=== PATIENT | female | born 1960 | race Caucasian/White ===

== ENCOUNTER 2016-12-31 07:08 | Emergency (ER) | payer OTHER, MEDICARE ==
[~2016-12-31 07:08] MED LIST: ALBU8.5H2 INHALATION; AMLO10TA3 PO; FLUT12AE6 INH; GABA-502 PO; IBUP-1827 PO; LEVO750T39 PO; LOSA100T29 PO; NICO1PAT6 TOPICAL; OMEP20CA11 PO; PARO40TA3 PO; PRE10 PO; TIOT18CA3 INHALATION
[2016-12-31 07:14] VITALS: BP 182/102; PULSE 99; RESP 24; O2SAT 95
[2016-12-31] MEDS ORDERED: Ondansetron 2 mg/mL 2 mL Inj ONE (07:27)
[2016-12-31] MEDS ORDERED: HYDROmorphone 0.5 mg/0.5 mL iSecure Syringe ONE (07:28)
--- NOTE | 2016-12-31 07:33 | ED.REPORT ---
HPI-Abd Pain F 40 and Over Date of Service Dec 31, 2016 ED Provider: Rogelio Krause MD 56 year old female presents to the ER accompanied by her with left flank pain onset yesterday around 20:00. Pain is aching in character, described as a "bad bruise", and radiates slightly into her back. Associated symptoms include bloody urine, and nausea. Patient denies fever, chills, vomiting, and history of kidney stones. Nursing Notes Stated Complaint: LEFT PAIN PAIN Chief Complaint: Female Abdominal Pain Nursing Notes Reviewed: Yes Allergies: Coded Allergies: penicillin (Verified Adverse Reaction, Unknown, Nausea,Vomiting, 12/31/16) Scheduled Amlodipine (Amlodipine) 10 Mg Tablet 1 TABLET PO DAILY Fluticasone/Salmeterol (Advair Hfa 230-21 Mcg Inhaler) 12 Gm Hfa.aer.ad 2 PUFFS INH BID Gabapentin (Gabapentin) 300 Mg Capsule 1 TABLET PO HS Levofloxacin (Levofloxacin) 750 Mg Tablet 750 MG PO DAILY Losartan Potassium (Losartan Potassium) 100 Mg Tablet 1 TABLET PO DAILY Nicotine 21 mg/24 hr Patch (Nicotine 21 mg/24 hr Patch) 1 Patch Patch 1 PATCH TOPICAL DAILY Omeprazole (Omeprazole) 20 Mg Capsule.dr 1 TABLET PO BID Paroxetine (Paroxetine) 40 Mg Tablet 1 TABLET PO DAILY Prednisone (PredniSONE) 10 Mg Tablet 10-40 MG PO DAILY TAKE 4 TABS (40 MG) PO DAILY X 2 DAYS THEN, TAKE 3 TABS (30 MG) PO DAILY X 2 DAYS THEN, TAKE 2 TABS (20 MG) PO DAILY X 2 DAYS THEN, TAKE 1 TAB (10 MG) PO DAILY X 2 DAYS THEN STOP. Tamsulosin (Flomax) 0.4 Mg Capsule 0.4 MG PO DAILY Tiotropium [place] (Spiriva) 18 Mcg Cap.w.dev 1 INHALER INHALATION DAILY Scheduled PRN Albuterol HFA (Proair HFA) 8.5 Gm Hfa.aer.ad 2 PUFFS INHALATION QID PRN PRN For Wheezing Ibuprofen (Ibuprofen) 600 Mg Tablet 600-800 MG PO QID PRN PRN For Pain Ibuprofen (Ibuprofen) 600 Mg Tablet 600 MG PO QID PRN PRN For Pain oxyCODONE-Acetaminophen 5-325 mg (oxyCODONE-Acetaminophen 5-325 mg) 1 Each Tablet 1 TAB PO Q4H PRN PRN For Pain General Time Seen by : 07:32 Chief Complaint Flank pain left Hx Obtained From: Patient Arrived By: Walk-in Sudden in Onset?: No Onset Occurred: Yesterday Symptom Duration: Since onset Location: : Flank left Quality: Aching, Painful Severity: Current: Severe Severity: Maximum: Severe Associated with: Reports: Nausea, Denies: Chills, Fever, Vaginal bleeding, Vomiting Similar Sx Previous: No Past Medical History Past Medical History Reports: COPD Past Surgical History Reports: Cholecystectomy, Hysterectomy Smoking History Current Every Day Smoker Social History Alcohol Use: Denies alcohol use Drug Use: Denies drug use Other Social History: Good social support, Ambulatory Status Independent Review of Systems Constitutional: Denies: Chills, Fever Respiratory: Denies: Non-productive cough Cardiovascular: Denies: Chest pain GI: Reports: Nausea, Denies: Abdominal pain, Diarrhea, Vomiting Female: Reports: Flank pain, Hematuria, Denies: Dysuria, Vaginal bleeding - abnl Musculoskeletal: Denies: Back pain Complete sys rev & neg: except as marked. Physical Exam Vital Signs Vital Signs (First) Date Time Temp Pulse Resp B/P Pulse Ox O2 Delivery O2 Flow Rate FiO2 12/31/16 07:14 36.1 99 24 182/102 95 Room Air Initial VS: Reviewed Head / Eyes: Atraumatic, Normocephalic Neck: Supple, Non-tender, Full range of motion Extremities: Vascular intact, Neuro intact, No swelling, No tenderness Skin: Warm, Dry, No cyanosis Neurologic: Alert, Oriented, Nonfocal Psychiatric: Mood/affect normal, Behavior normal, Normal thought content General/Constitutional: Awake, Alert, Well developed, Well nourished Appearance / Presentation: Positive: In pain, Uncomfortable Respiratory / Chest: Breath sounds NL, Breath sounds = bilat, No respiratory distress, No rales, No rhonchi, No wheezing, No stridor Cardiovascular: Heart rate NL, Regular rhythm, Heart sounds NL, Peripheral circulation NL Abdomen: Soft, No guarding, No rebound, No distention Tenderness/Guarding/Rebound: Positive: Tender LLQ..., Tender LUQ... Back: Full range of motion, No midline vertebral tend Flank / Spine / Paraspinal: Positive: Flank tender L (Mild percussive tenderness) Interpretation & Diagnostics Lab Results Interpretation Result Diagram: 12/31/16 0725 12/31/16 0725 Test 12/31/16 07:25 12/31/16 08:55 White Blood Count 17.5th/mm3 (3.8-10.1) Red Blood Count 5.05mil/mm3 (3.90-5.20) Hemoglobin 13.4g/dL (12.0-15.6) Hematocrit 41.7% (35.0-46.0) Mean Corpuscular Volume 82.6fL (81-100) Mean Corpuscular Hemoglobin 26.5pg (27.0-35.0) Mean Corpuscular Hemoglobin Concent 32.1% (32.0-37.0) Red Cell Distribution Width 16.3% (12.3-15.4) Platelet Count 424bil/L (150-400) Neutrophils (%) (Auto) 76.9% (40-74) Lymphocytes (%) (Auto) 13.4% (14-46) Monocytes (%) (Auto) 8.8% (4-12) Eosinophils (%) (Auto) 0.6% (0-5) Basophils (%) (Auto) 0.1% (0-3) Sodium Level 142mEq/L (134-144) Potassium Level 4.1mEq/L (3.5-5.2) Chloride Level 105mEq/L (97-108) Carbon Dioxide Level 22mmol/L (18-29) Blood Urea Nitrogen 19mg/dL (6-24) Creatinine 0.90mg/dL (0.57-1.00) Estimat Glomerular Filtration Rate 92mL/min (>59) Glucose Level 127mg/dL (60-99) Calcium Level 9.0mg/dL (8.5-10.1) Total Bilirubin 0.3mg/dL (0.0-1.2) Aspartate Amino Transf (AST/SGOT) 25U/L (0-50) Alanine Aminotransferase (ALT/SGPT) 16U/L (0-32) Alkaline Phosphatase 122U/L (25-150) Total Protein 7.4g/dL (6.4-8.4) Albumin 4.5g/dL (3.4-5.0) Lipase 44U/L (13-60) Urine Color (YELLOW) Urine Appearance Cloudy (CLEAR,HAZY) Urine pH 6.0 (5.0-8.0) Urine Specific [place] 1.026 (1.003-1.035) Urine Protein 30mg/dL (NEG,TRACE) Urine Glucose (UA) Negativemg/dL (NEGATIVE) Urine Ketones Negativemg/dL (NEGATIVE) Urine Occult Blood Large (NEGATIVE) Urine Nitrite Negative (NEGATIVE) Urine Bilirubin Negative (NEGATIVE) Urine Urobilinogen Normalmg/dL (NORMAL) Urine Leukocyte Esterase Negative (NEGATIVE) Urine RBC Packed/hpf (0-2) Urine WBC 0-5/hpf (0-5) Urine Epithelial Cells Moderate/hpf (NONE-MOD) Urine Crystals None seen (NONE SEEN) Urine Bacteria None/hpf (NONE-FEW) Urine Hyaline Casts None/lpf (NONE) Urine Granular Casts None seen (NONE SEEN) Urine Waxy Casts None seen (NONE SEEN) Urine Red Blood Cell Casts None seen (NONE SEEN) Urine White Blood Cell Casts None seen (NONE SEEN) Urine Mucus None seen (None Seen) Urine Trichomonas None seen (NONE SEEN) Urine Yeast None (NONE SEEN) Urinalysis Comment None Urine Culture Reflexed Not indicated CT Abd / Pelvis Interpretation IMPRESSION: Mild to moderately obstructing 5 mm proximal left ureteral calculus No other urolithiasis. Dictated by: Javier Alatorre M.D. on 12/31/2016 at 8:26 Approved by: Javier Alatorre M.D. on 12/31/2016 at 8:31 Study type: Abdominal CT no contrast Interpretation / Wet Read by: Interpret - Radiologist Re-Eval/Medical Decision Med Decision/Clinical Course In summary, the patient is a generally healthy 56-year-old female who presents with colicky left-sided flank pain that is associated with hematuria. Here in the emergency department the patient is afebrile, borderline tachycardic and appears quite uncomfortable though otherwise has a benign abdominal examination. Patient was treated with the below medications and reported significant symptom improvement. IV fluids Dilaudid Zofran Upper studies were notable as below: Leukocytosis 17.5 Hct 41.7 Good renal function No electrolyte abnormalities. UA Large blood, otherwise normal. CT KUB IMPRESSION: Mild to moderately obstructing 5 mm proximal left ureteral calculus. No other urolithiasis. History, laboratory studies and imaging as above are all consistent with renal colic as a cause of the patient's pain. After blood medications patient reported significant symptomatic improvement and is able to tolerate PO. She remained afebrile without any significant evidence suggestive of urinary tract infection on urinalysis. Serial abdominal examinations remained benign without any findings suggestive of an acute surgical intra-abdominal process. Patient requested to be discharged home. She has been provided with urine strainer and referral to urology. Prescriptions for Flomax, oxycodone and ibuprofen were provided. At this time I feel that she is appropriate for outpatient management. She is advised to return right away for any worsening pain, fevers , UTI symptoms or other concerns. Follow-up and return precautions were reviewed in detail patient discharged stable condition. Source of Hx: Old records Re-Evaluation/Progress : Time of Eval: 09:21 Re-Evaluation/Progress Note: Discussed lab and CT results with patient and plan for discharge. Patient understands and agrees to the plan. Return precautions given. All other questions addressed. Counseled Regarding: Diagnosis, Lab results, Need for follow-up, When/why to return to ED Discharge & Departure Primary Impression: Left ureteral stone Additional Impressions: Hematuria Leukocytosis Leukocytosis type: unspecified Qualified Code: D72.829 - Elevated white blood cell count, unspecified Left flank pain Disposition: Home Discharge Condition All VS Reviewed: Yes Condition: Stable Additional Instructions: Thank you for seeking care at emergency room. It is difficult for us to make definitive diagnoses in the ED but we believe that you are experiencing a kidney stone. Our primary goal today in the ED was to evaluate you for any life-threatening conditions. Your evaluation was reassuring. You will be discharged with a prescription for oxycodone, ibuprofen, and Flomax. Please take these as directed. Do not drink alcohol or drive while taking oxycodone. Drink lots of fluids. Use urine strainer. You should call the urologist at the number provided first thing tomorrow to arrange an appointment this week. You should return to the ED immediately if you develop uncontrolled pain, fever , chills, vomiting, or any other concerning signs or symptoms. Thank you for letting us partake in your care today. Referrals: Liz Moon (PCP) Kamala Ramachandran MD Scribe Attestation Portions of this note were transcribed by Lester Dixon. I, Dr. Krause, personally performed the history, physical exam and medical decision-making; I reviewed and confirmed the accuracy of the information in the transcribed note. Signed by: Marcos Keith, 12/31/2016 and 09:39 copies to: Kamala Ramachandran MD; Liz Moon Beck O MD Dec 31, 2016 07:33 LESTER DIXON Dec 31, 2016 07:41
[2016-12-31] MEDS ORDERED: 0.9% Sodium Chloride 1,000 ML IV ONE ×2 (07:39→08:40)
[2016-12-31] MEDS ORDERED: Ondansetron 2 mg/mL 2 mL Inj IVPUSH ONE (07:40)
[2016-12-31 07:49] LABS: BASOPHILS % (AUTO) 0.1 % (0-3); EOSINOPHILS % (AUTO) 0.6 % (0-5); MONOCYTES % (AUTO) 8.8 % (4-12); Mean Corpuscular Hemoglobin 26.5 pg (27.0-35.0); Mean Corpuscular Volume 82.6 fL (81-100); NEUTROPHILS % (AUTO) 76.9 % (40-74); Platelet Count 424 bil/L (150-400)
[2016-12-31] MEDS: HYDROmorphone 0.5 mg/0.5 mL iSecure Syringe IVPUSH PRN ×3 (08:08→08:56)
--- NOTE | 2016-12-31 08:31 | DRSVH ---
PROCEDURE: CT KUB ([id number]) INDICATIONS: L flank pain, hematuria TECHNIQUE: Noncontrast 5 mm thick sections acquired from the diaphragms to the symphysis. 5 mm thick coronal an d sagittal reformats were then performed. For radiation dose reduction, the following was used: aut omated exposure control, adjustment of mA and/or kV according to patient size. COMPARISON: None. FINDINGS: Image quality: Excellent. Lung bases: Lung bases are clear. Heart size is normal. Urinary system: 5 mm moderately obstructing of left ureteral calculus is seen. There is mild/moderate left hydronephrosis and asymmetric left enlargement. There is left perinephric stranding. No other u rolithiasis seen. Bladder grossly unremarkable Other solid organs: Liver and spleen are normal in size. Gallbladder negative. Pancreas is normal in contours. No adrenal nodules. Peritoneum and bowel: Unenhanced bowel loops demonstrate normal wall thickness and caliber. No free fluid or air. Scattered colonic diverticulosis incidentally noted. Appendix not definitely visualiz ed Nodes and vessels: No retroperitoneal or mesenteric adenopathy by size criteria. Aorta and inferior vena cava are normal in caliber. Abdominal wall: Small fat -containing umbilical hernia Pelvis: No free pelvic fluid. No inguinal hernias or adenopathy. Bones: No suspicious bony lesions. No vertebral body compression fractures. IMPRESSION: Mild to moderately obstructing 5 mm proximal left ureteral calculus No other urolithiasis. Dictated by: Javier Alatorre M.D. on 12/31/2016 at 8:26 Approved by: Javier Alatorre M.D. on 12/31/2016 at 8:31
[2016-12-31] MEDS ORDERED: OXYC1TAB24 PO (09:25)
[2016-12-31] MEDS ORDERED: TAMS0.4C98 PO (09:25)
[2016-12-31] MEDS ORDERED: IBUP-1827 PO (09:25)
[2016-12-31 09:35] LABS: APPEARANCE,URINE CLOUDY (CLEAR,HAZY); OCCULT BLOOD,URINE LARGE (NEGATIVE); UROBILINOGEN,URINE NORMAL (NORMAL)
[2016-12-31 09:47] VITALS: BP 133/69; PULSE 104; RESP 16; O2SAT 90
== END 2016-12-31 10:00 | disposition home or self-care (01) ==
LOC: SED 07:08
DX: N20.1 Calculus of ureter (principal); R31.9 Hematuria, unspecified; D72.829 Elevated white blood cell count, unspecified; J44.9 Chronic obstructive pulmonary disease, unspecified; F17.200 Nicotine dependence, unspecified, uncomplicated; Z88.0 Allergy status to penicillin
CPT/HCPCS: 36415; 74176; 80053; 81000; 83690; 85025; 96361; 96374; 96375; 96376; 99285; J1170; J2405; J7030